=== PATIENT | female | born 1960 | race Caucasian/White ===

== ENCOUNTER → 2018-04-01 10:03 | Outpatient (CLI) | payer BC, SELFPAY ==
[2018-04-01 10:13] LABS: Potassium 4.5 mmol/L (3.5-5.1)
== END ==
PROVIDERS: PCP Internal Medicine; Visit Provider Internal Medicine
DX: E87.5 Hyperkalemia (principal)
CPT/HCPCS: 84132

== ENCOUNTER → 2019-07-31 | Outpatient (CLI) | payer BC, SELFPAY ==
--- NOTE | 2019-07-31 11:16 | COLBX_PTH ---
PATIENT: LUISITO LAMB [facility] U#:[id number] AGE/SX: 59/F ROOM: RE07/31/[address]: Dr. Panchito Rice MD : 1960 BED: DIS: 07/31/2019 SPEC #: [id number] RECD: 07/31/19 15:14 STATUS: ISMAEL REFrancine #: [id number] ARMANDO: 07/31/19 11:[address]: Panchito Rice DEPT: SURGICAL PATHOLOGY RECD BY: Sakina Vasquez ENTERED: 08/03/19 08:40 SP TYPE: COLON BX LATRELL DR: Dr. Nella Canales, [facility] Tissues: Sigmoid colon biopsy Procedures: Surgery Specimen Level IV HEADER OPERATION: Colonoscopy with biopsy PRE-OP DIAGNOSIS: Screening TISSUE SUBMITTED: Distal sigmoid polyp biopsy MICROSCOPIC DIAGNOSIS Distal sigmoid polyp, biopsy: Fragments of hyperplastic polyp. SJ:seamus 08/04/19 MICROSCOPIC DESCRIPTION Slides are reviewed. GROSS DESCRIPTION Received in fixative is one container labeled with the patient's name and designated distal sigmoid biopsy. The specimen consists of two irregular fragments of light mccullough soft tissue that in aggregate measure 0.3 x 0.2 x 0.1 cm. The specimen is totally submitted in one cassette. / AM:seamus 08/03/19 TC:1 CPT: 39637
== END | disposition home or self-care (01) ==
PROVIDERS: PCP Internal Medicine; Referring Provider Internal Medicine Gastroenterology; Visit Provider Internal Medicine Gastroenterology
DX: Z12.11 Encounter for screening for malignant neoplasm of colon (principal)
CPT/HCPCS: 88305

== ENCOUNTER 2021-05-30 15:40 | Outpatient (CLI) | payer BC, SELFPAY ==
--- NOTE | 2021-05-30 16:02 | BI_ITS ---
MAMMOGRAPHY - BILATERAL SCREENING REASON FOR EXAM: Female, 61 years old. Routine annual screening examination. PERTINENT HISTORY: Non-contributory. TECHNIQUE: Digital bilateral breast linh (3D mammographic acquisition) in the CC and MLO projections. 2-D mediolateral oblique (MLO) and craniocaudad (CC) views of both breasts were obtained. CAD: Full Field Digital Mammography with Computer Added Detection was performed. COMPARISON: Comparison is made with prior study dated 02/15/2016 and 10/12/2014. FINDINGS: Breast Composition: There are scattered areas of fibroglandular density. There are no dominant masses or suspicious calcifications. The previously seen nodular density in the upper outer aspect of the left breast has decreased in size. It presently measures 4.6 mm. This was demonstrated to be a cyst on prior ultrasound. No other significant abnormalities are identified. BI/SCRN MAMM (CAD)W/LINH BILAT IMPRESSION: Stable bilateral screening mammogram. Yearly follow-up mammogram recommended. (A) ASSESSMENT CATEGORY: BIRADS Category 2: Benign. A letter regarding these results will be sent to the patient by the facility within 30 days. Approximately 10% of breast cancers are not detected by mammography. A normal mammogram should not delay biopsy of a clinically suspicious abnormality. [id number] Electronically Signed: Kirit Gilbert MD at 8:08 EDT ,
== END 2021-05-30 23:59 | disposition home or self-care (01) ==
LOC: OPBI 16:01
PROVIDERS: PCP Internal Medicine; Visit Provider Internal Medicine
DX: Z12.31 Encounter for screening mammogram for malignant neoplasm of breast (principal)
CPT/HCPCS: 77063; 77067

== ENCOUNTER 2021-06-07 08:51 | Outpatient (CLI) | payer BC, SELFPAY ==
--- NOTE | 2021-06-07 09:01 | BD_ITS ---
STUDY: DUAL ENERGY X-RAY ABSORPTIOMETRY / DXA REASON FOR EXAM: Female, 61 years old. Z780. The patient is postmenopausal. TECHNIQUE: Bone Mineral Density (BMD) measurements of lumbar spine and bilateral hips were obtained. COMPARISON: None. FINDINGS: Lumbar Spine (L1-L4): g/cm2 (0.612) / T-score (-4.4) / Z-score (-2.8) Findings are suggestive of osteoporosis with a high fracture risk. Left Femur Total: g/cm2 (0.614) / T-score (-2.7) / Z-score (-1.6) Left Femoral Neck: g/cm2 (0.474) / T-score (-3.4) / Z-score (-2.0) Right Femur Total: g/cm2 (0.694) / T-score (-2.0) / Z-score (-1.0) Right Femoral Neck: g/cm2 (0.488) / T-score (-3.3) / Z-score (-1.9) BD/Dexa Bone Density Study IMPRESSION: The patient is considered osteoporotic as outlined below according to World Sam Organization (WHO) criteria with a high fracture risk. Reference Information: The T-score is the number of standard deviations above or below the standard which is normal for young adults at their peak bone mineral density. The World Health Organization (WHO) interprets the T-scores as follows: Above -1 Normal bone density Between -1 and -2.5 Osteopenia Equal to / or below -2.5 Osteoporosis As a practical clinical guideline, osteopenia may be graded as follows: Mild -1 through -1.5 Moderate -1.6 through -2.0 Severe -2.1 through -2.4 The Z-score is the number of standard deviations above or below age-matched controls. A Z-score of less than -1.5 would be considered abnormal. References: 1. NIH Osteoporosis and Related Bone Diseases www osteo.org 2. International Society for Clinical Densitometry www iscd.org 3. National Osteoporosis Foundation www [email or web address] Electronically Signed: Kirit Gilbert MD at 13:42 EDT ,
== END 2021-06-07 23:59 | disposition home or self-care (01) ==
LOC: OPBD 08:54
PROVIDERS: PCP Internal Medicine; Visit Provider Internal Medicine
DX: Z78.0 Asymptomatic menopausal state (principal)
CPT/HCPCS: 77080

== ENCOUNTER 2022-10-19 09:00 | Outpatient (RCR) | payer OTHER, SELFPAY ==
--- NOTE | 2022-09-20 10:29 | HP.PTEVAL_ITS ---
Patient's Visit Information Visit Information Visit Information: LUISITO LAMB is a 62 year old F referred to Physical Therapy by DELANEY Harris with a diagnosis of CERVICAL PAIN. Date of Evaluation: 09/20/22 Physical Therapist: Santana Aly, PT, Cert MDT, OCS Visit Plan Frequency: 2x /Week Duration: 4 Weeks Plan: PRECAUTION OSTEOPOROSIS PT INTERVENTIONS CERVICAL ROM , POSTURAL EX'S , MANUAL THERAPY STM/ CERVICAL TRACTION , FLEXAILITY AND US/EXTIM/CP Subjective Subjective: This 62 y/o female presents to physical therapy for cervical pain. Patient started with scapular pain left > right side ~ 1week. Patient currently has left side radiculopathy. No specific etiology of pain or injury. Patient has h/o cervical radiculopathy. Patient had x-rays - showed spur ,provided prednisone and pack . Aggravating factors siting ,rotation and lifting and driving. Alleviating factors rest ,medication. C/O paresthesia/tingling. Patient has MORALES ,denies tinnitus /nausea/dizziness. Patient has no abnormal night pain. Patient condition affects QOL and function. Patient goals to have no pain PRECAUTION: OSTEOPROSIS . Patient has right scoliosis with right convex ,scapular winging SOCAIL: VOACTION: retired Pain Left Scapula: Pain Intensity (Out of 10): 7 Pain Intensity Range: 10 Left Shoulder: Pain Intensity (Out of 10): 9 Pain Intensity Range: 10 Objective Objective: Posture: rounded shoulders head forward ,right scapular winging ,scoliosis right ,right shoulder eleviated NEURO: c/o paresthesia/tingling left arm ,reflexes C5-6-7 2/3 PALPATION: tender UT/levator BUE AROM: WFL MMT: BUE 4/5 Shoulders 4-/5 CERVICAL ROM: flexion min loss ,lateral flexion mod loss ,rotation mod loss ,extension mod loss Special Tests C/S Radiculapathy - Left Upper limb tension test: Negative C/S Radiculapathy - Left Spurlings: Positive C/S Radiculapathy - Right Spurlings: Negative C/S Radiculapathy - Left Cervical distraction: Negative C/S Radiculapathy - Right Cervical distraction: Negative C/S Radiculapathy - Left Relief test: Negative C/S Radiculapathy - Right Relief test: Negative Sharp Rito: Negative Vertebral Artery Test: Negative Alar Ligament Test: Negative Balance/Special Test Scores Oswestry Neck Score: 21 Goals Goal 1:: Patient to be I with HEP for cervical Goal Time Frame: 4-6 Weeks Goal 2:: Patient to improve neck oswestry score by 5 points or > to improve function Goal Time Frame: 4-6 Weeks Goal 3:: Patient to improve cervical ROM for function of recovery to turn neck when driving Goal Time Frame: 4-6 Weeks Goal 4:: Patient to demonstrate 50% improvement with less pain and improved function. Goal Time Frame: 4-6 Weeks Rehabilitation Potential Physical Therapy Diagnosis: This patient has DDD with spurs and asymmetries with scoliosis with possible lateral stenosis with in left arm pain with positioning and motion testing thus will benefit from skilled PT Rehabilitation Potential: Good Anticipated Interventions Patient/Client Instruction: Educate patient on: Condition and Plan of Care For the Purpose of:: To decrease pain, To increase ROM, To improve muscle performance and motor function, To improve ability to perform ADL's, To increase tolerance to activity/condition/position, To improve ability of physical actions for home/community/work/leisure, To improve health of tissue, To decrease soft tissue restriction, To increase flexibility/ROM and To assume or resume ADL's Therapeutic Exercise to Include: Strength training, Postural training, Flexibilty training and Active ROM For the Purpose of:: To decrease pain, To increase ROM, To improve muscle performance and motor function, To improve ability to perform ADL's, To increase tolerance to activity/condition/position, To improve ability of physical actions for home/community/work/leisure, To improve health of tissue, To decrease soft tissue restriction, To increase flexibility/ROM, To reduce risk of recurrence and To improve tolerance to ADL's Manual Therapy Techniques to Include: Soft tissue mobilization Comment: CERVCICAL TRACTION For the Purpose of:: To decrease pain, To increase ROM, To improve nutrient delivery to tissue, To increase oxygenation perfusion, To improve health of tissue, To decrease soft tissue restriction and To increase flexibility/ROM TENS: Yes IF ES: Yes Cryotherapy (ice pack, ice massage): Yes Thermo therapy (hot pack): Yes Ultrasound (thermal/non thermal): Yes For the Purpose of:: To decrease pain, To increase ROM, To improve nutrient delivery to tissue, To increase oxygenation perfusion, To improve health of tis margareth and To decrease soft tissue restriction Text: Thank you for the opportunity to evaluate your patient. For Medicare and Medicare HMO plans, please review the plan of care and approve it. It will need to be FAXED BACK to us at [phone] for Medicare purposes. For Medicare only, by signing this I certify the plan of care. Please let me know if there are questions or concerns regarding this plan of care. Physician Signature: Date:
--- NOTE | 2022-10-19 09:18 | HP.PTDCSUM ---
Discharge Summary D/C summary: It has been my pleasure to treat LUISITO LAMB referred by Deepali Cruz NP-C, with the diagnosis of CERVICAL PAIN for a total of 9 visit(s). Discharge Date: 10/19/22 Please see the following information for a summary of their discharge status. Subjective Subjective: PT has been helping with decreasing pain just paresthesia in fingers Pain Left Scapula: Pain Intensity (Out of 10): 0 Left Shoulder: Pain Intensity (Out of 10): 0 Overall Improvement % Improvement: 90 Objective Objective/Function: pt noted no pain anymore just numbness in her same fingers. It is the same as when she started PT. Goals Goal 1:: Patient to be I with HEP for cervical Goal Progress: Goal Met Goal 2:: Patient to improve neck oswestry score by 5 points or > to improve function Goal Progress: Goal Met Goal 3:: Patient to improve cervical ROM for function of recovery to turn neck when driving Goal Progress: Goal Met Goal 4:: Patient to demonstrate 50% improvement with less pain and improved function. Goal Progress: Goal Met Goal Progress: Goal Met Plan Plan: D/C TO HEP D/C Information d/c sentence: If there are questions or concerns regarding this patient's physical therapy, please feel free to call me at [phone]. Thank you for the referral of this patient. Sincerely, Santana Aly, PT, Cert MDT, OCS Balance/Gait/Functional tests Balance/Special Test Scores Oswestry Neck Score: 0 Improvement % Improvement: 90
== END 2022-10-19 09:38 | disposition home or self-care (01) ==
LOC: PT 09:00
PROVIDERS: PCP Internal Medicine; Referring Provider Nurse Practitioner Family; Visit Provider Nurse Practitioner Family
DX: M54.2 Cervicalgia (principal)
CPT/HCPCS: 97110; 97140; 97162; 97530

== ENCOUNTER → 2023-05-21 | Outpatient (CLI) | payer OTHER, SELFPAY ==
--- NOTE | 2023-05-21 07:37 | CT_ITS ---
STUDY: LOW DOSE CT LUNG CANCER SCREENING REASON FOR EXAM: Female, 63 years old. Former smoker. Patient quit 10 years ago. The patient smoked 1 pack per day for 40 years. RADIATION DOSAGE (If Supplied By Facility): CTDIvol = ( 2.01 ) mGy, DLP = ( 56.65 ) mGycm TECHNIQUE: No contrast was administered. Low dose technique was utilized (average mAS-38 and kVp 120). 1.25 mm axial source images with a slice interval of 1.25-mm were reconstructed in lung windows. 2.5 mm axial source images with a slice interval of 2.5-mm were reconstructed in lung windows. 5.0 mm axial source images with a slice interval of 5.0-mm were reconstructed in soft tissue windows. COMPARISON: None. NODULES: Tiny calcified granulomas in the right upper lobe. There is a 1.3 cm x 1 cm irregular spiculated heterogeneous nodular density in the lateral aspect of the right upper lobe as seen on axial image #77 and coronal image #145. This most likely represents a focal area of scarring although correlation with a PET scan is recommended. Emphysema: Hyperinflation. Emphysematous changes. Scarring in the lung apices with bullous formation. Endobronchial lesion: None Aorta: Atherosclerotic plaque formation of the aortic arch. CORONARY ARTERIES: Coronary artery calcification is not seen. Heart: Unremarkable Pulmonary artery: Unremarkable Mediastinal nodes: Small mediastinal lymph nodes. Other chest and abdominal findings: CT/Low Dose CT Lung Screening IMPRESSION: Lung-RADS category 4A - Screening at 3 months with LDCT or evaluation with PET/CT may be used. IMPORTANT NOTES FOR USE: ACR Lung-RADS Version 1.1 Assessment Categories Release Date: 2018 Category: Coded 0-4 bases on nodule(s) with highest degree of suspicion. Negative screen is defined as categories 1 and 2; a positive screen is defined as categories 3 and 4. Category 3 and 4A nodules that are unchanged on interval CT should be coded as category 2, and individuals returned to screening in 12 months. Category 4X: Category 3 or 4 nodules with additional imaging findings that increase the suspicion of lung cancer, such as spiculation, GGN that doubles in size in 1 year, enlarged lymph notes, etc. Category Modifiers: S (significant finding unrelated to lung cancer) Electronically Signed: Kirit Gilbert MD at 10:59 EDT ,
== END | disposition home or self-care (01) ==
LOC: CT 07:37
PROVIDERS: PCP Internal Medicine; Referring Provider Internal Medicine; Visit Provider Internal Medicine
DX: Z87.891 Personal history of nicotine dependence (principal)
CPT/HCPCS: 71271

== ENCOUNTER → 2023-05-28 | Outpatient (CLI) | payer OTHER, SELFPAY | END | disposition home or self-care (01) | LOC: PSN 09:08 | PROVIDERS: PCP Internal Medicine; Referring Provider Internal Medicine; Visit Provider Internal Medicine | DX: J43.9 Emphysema, unspecified (principal) | CPT/HCPCS: 94060; 94726; 94729 ==

== ENCOUNTER → 2023-06-04 | Outpatient (CLI) | payer OTHER, SELFPAY ==
--- NOTE | 2023-06-04 10:00 | PET_ITS ---
EXAMINATION: FDG PET/CT ? INDICATIONS: 63-year-old female with a history of pulmonary nodularity. ? COMPARISON EXAMINATION: CT of the chest report dated 05/21/2023. ? INDEX LESION SIZE SUV INTERPRETATION Right mid anterior lung field, right upper lobe ? 1.6 max Quantitative criteria for viable neoplasm are not fulfilled, sequential radiologic investigation recommended ? Left lobe thyroid colloid 16.1 mm 49.0 Warrants further investigation with thyroid ultrasound ? TECHNIQUE: Following the intravenous administration of 13.7 mCi of F-18 deoxyglucose via the right wrist, multiplanar image acquisitions of the head, neck, chest, abdomen and pelvis to the level of the midthigh, obtained at one-hour post radiopharmaceutical administration contemporaneously interpreted with the current CT of the chest, abdomen and pelvis dated 06/04/[address] of the chest report dated 05/21/2023 via coregistration reveal: ? SERUM GLUCOSE LEVEL:? 76/ mg/dL? HEIGHT:?? 62 inches WEIGHT:?? 136 pounds ? FINDINGS: ? HEAD/NECK:? Asymmetric increased radiopharmaceutical concentration is defined in the left lobe thyroid colloid generating a calculated standard uptake value of 49.0. The maximal axial diameter of the metabolic, morphologic abnormality is 16.1 mm. ? The visualized portion of the cerebral cortical-subcortical structures demonstrate symmetric and preserved glucose metabolism. ? CHEST:? Facilitated uptake is barely perceptible in the right upper lung field, right upper lobe. The calculated maximum standard uptake value is 1.6. Quantitative criteria for viable neoplasm are not fulfilled. ? CT of the chest demonstrates the following anatomic characteristics: Bilateral axillary soft tissue densities are ametabolic. Atherosclerotic calcification is defined in the thoracic aorta without evidence of dilatation, aneurysm formation. There are no additional parenchymal densities-nodules defined in the right and left hemithorax with quantitatively significant increased FDG uptake. Scattered mediastinal soft tissue densities are ametabolic. ? ABDOMEN/PELVIS:? Normal physiologic distribution of the radiopharmaceutical is identified in the hepatic (3.6) and splenic parenchyma, both renal units, urinary bladder, and visualized intestinal tract. Diffuse intestinal tract is identified in all four quadrants of the abdominal-pelvic mesentery. ? CT of the abdomen and pelvis is remarkable for the following: Left and right inguinal soft tissue densities are ametabolic. The uterus appears retroflexed. Atherosclerotic calcification is defined in the abdominal aorta without evidence of dilatation, aneurysm formation. Pelvic arterial calcification is observed. ? SKELETAL:? There is no evidence of quantitatively significant enhanced glucose metabolism on meticulous inspection of the appendicular and axial skeletal structures. A thoracolumbar scoliosis is demonstrated. ? Degenerative changes defined in the thoracic and lumbar spine demonstrate no evidence of increased glucose metabolism. There are no sclerotic, mixed sclerotic-lytic, or primarily lytic changes defined in the axial skeletal structures with evidence of increased FDG uptake. ? PET/PET/CT Tumor Base -Thigh Init IMPRESSION: 1. The increased radiopharmaceutical concentration defined in the left lobe thyroid colloid may be further investigated with thyroid ultrasound secondary to the quantitative degree of uptake. 2. Facilitated uptake manifest in the right mid anterior lung field, right upper lobe does not fulfill quantitative criteria for malignant transformation. 3. Anatomic stability may be ensured with repeat FDG-PET CT regarding the right hemithorax pulmonary parenchymal abnormality in 3-6 months if clinically indicated. (Alex, Seminars in Thoracic and Cardiovascular Surgery, 14:292, 2002). Electronic Signature Gray Mae D.O. Accurate Quantification of SUVs for this report are calculated using the exclusive [employer]. (U.S. Patent No. [phone] B2 [phone] [place] patent [id number] [id number]). Standardization and correction of the FDG SUV metric via [employer] technology allow for vendor non-specific objective quantitative examination comparison and optimization of the sensitivity and specificity of the FDG PET-CT examination. . [email or web address] Electronically Signed: Gray Mae DO at 22:31 EDT ,
== END | disposition home or self-care (01) ==
PROVIDERS: PCP Internal Medicine; Referring Provider Internal Medicine; Visit Provider Internal Medicine
DX: R91.1 Solitary pulmonary nodule (principal)
CPT/HCPCS: 78815; A9552

== ENCOUNTER → 2023-06-19 | Outpatient (CLI) | payer OTHER, SELFPAY ==
--- NOTE | 2023-06-19 11:07 | US_ITS ---
STUDY: THYROID ULTRASOUND REASON FOR EXAM: Female, 63 years old. abnormal positron emission tomography TECHNIQUE: Ultrasound evaluation of the thyroid was performed with real-time and static dejesus-scale imaging. COMPARISON: PET/CT 06/04/2023 FINDINGS: RIGHT LOBE: The right lobe of the thyroid gland measures 4.1 x 2.2 x 1.4 cm. There is a homogeneous echotexture. There are no demonstrated solid, cystic or complex lesions. LEFT LOBE: The left lobe of the thyroid gland measures 4.2 x 1.8 x 1.4 cm. There is a homogeneous echotexture. Nodule 1:18 x 10 x 13 mm solid isoechoic wider than tall ill-defined margin nodule with no echogenic foci (TR 3) in the mid left lobe corresponding to the nodule with increased uptake seen on PET/CT and follow-up ultrasound is recommended in one year. Small hyperechoic areas posterior to the thyroid gland may represent focal fat. ISTHMUS: The isthmus measures 2 mm thick. . The regional lymph nodes are normal. US/Thyroid IMPRESSION: Ultrasound confirms an 18 mm solid nodule in the left lobe corresponding to nodule seen on PET/CT and follow-up ultrasound is recommended in one year. Electronically Signed: Gray Lnyn MD at 23:47 EDT ,
== END | disposition home or self-care (01) ==
LOC: US 11:07
PROVIDERS: PCP Internal Medicine; Referring Provider Internal Medicine; Visit Provider Internal Medicine
DX: R94.8 Abnormal results of function studies of other organs and systems (principal)
CPT/HCPCS: 76536

== ENCOUNTER → 2023-11-27 | Outpatient (CLI) | payer OTHER, SELFPAY ==
--- NOTE | 2023-11-27 14:52 | BI_ITS ---
MAMMOGRAPHY - BILATERAL SCREENING REASON FOR EXAM: Female, 63 years old. Routine annual screening examination. PERTINENT HISTORY: Non-contributory. History of prior left breast aspiration. TECHNIQUE: Digital bilateral breast linh (3D mammographic acquisition) in the CC and MLO projections. 2-D mediolateral oblique (MLO) and craniocaudad (CC) views of both breasts were obtained. CAD: Full Field Digital Mammography with Computer Added Detection was performed. COMPARISON: Comparison is made with prior study May 30, 2021 and February 15, 2016. FINDINGS: Breast Composition: There are scattered areas of fibroglandular density. There are no dominant masses or suspicious calcifications. No other significant abnormalities are identified. There has been no significant change since the prior study. BI/SCRN MAMM (CAD)W/LINH BILAT IMPRESSION: Stable bilateral screening mammogram. Yearly follow-up mammogram recommended. (A) ASSESSMENT CATEGORY: BIRADS Category 1: Negative. A letter regarding these results will be sent to the patient by the facility within 30 days. Approximately 10% of breast cancers are not detected by mammography. A normal mammogram should not delay biopsy of a clinically suspicious abnormality. [id number] Electronically Signed: Kirit Gilbert MD at 9:35 EDT ,
--- NOTE | 2023-11-27 14:59 | BD_ITS ---
STUDY: DUAL ENERGY X-RAY ABSORPTIOMETRY / DXA REASON FOR EXAM: Female, 63 years old. z780 -- Postmenopausal status TECHNIQUE: Bone Mineral Density (BMD) measurements of lumbar spine and bilateral hips were obtained. COMPARISON: Comparison is made with prior study dated June 07, 2021. FINDINGS: Lumbar Spine (L1-L4): g/cm2 (0.624) / T-score (-4.3) / Z-score (-2.5) Findings are suggestive of osteoporosis with a high fracture risk. Left Femur Total: g/cm2 (0.630) / T-score (-2.6) / Z-score (-1.3) Left Femoral Neck: g/cm2 (0.512) / T-score (-3.0) / Z-score (-1.5) Right Femur Total: g/cm2 (0.631) / T-score (-2.6) / Z-score (-1.3) Right Femoral Neck: g/cm2 (0.506) / T-score (-3.1) / Z-score (-1.6) The T-Scores on the most recent prior examination were: Lumbar Spine (L1-L4): There has been improvement of bone density since the previous examination. Left Femur Total: which represents an improvement of 2.7%. Right Femur Total: which represents a worsening of 9.1%. BD/Dexa Bone Density Study IMPRESSION: The patient is considered osteoporotic as outlined below according to World Sam Organization (WHO) criteria with a high fracture risk. There has been worsening of bone density since the previous examination. Reference Information: The T-score is the number of standard deviations above or below the standard which is normal for young adults at their peak bone mineral density. The World Health Organization (WHO) interprets the T-scores as follows: Above -1 Normal bone density Between -1 and -2.5 Osteopenia Equal to / or below -2.5 Osteoporosis As a practical clinical guideline, osteopenia may be graded as follows: Mild -1 through -1.5 Moderate -1.6 through -2.0 Severe -2.1 through -2.4 The Z-score is the number of standard deviations above or below age-matched controls. A Z-score of less than -1.5 would be considered abnormal. References: 1. NIH Osteoporosis and Related Bone Diseases www osteo.org 2. International Society for Clinical Densitometry www iscd.org 3. National Osteoporosis Foundation www nof.org Electronically Signed: Kirit Gilbert MD at 15:31 EDT ,
== END | disposition home or self-care (01) ==
LOC: OPBD 14:50
PROVIDERS: PCP Internal Medicine; Referring Provider Internal Medicine; Visit Provider Internal Medicine
DX: Z12.31 Encounter for screening mammogram for malignant neoplasm of breast (principal); Z78.0 Asymptomatic menopausal state
CPT/HCPCS: 77063; 77067; 77080

== ENCOUNTER → 2024-05-20 | Outpatient (CLI) | payer BC, SELFPAY ==
--- NOTE | 2024-05-20 13:53 | US_ITS ---
PROCEDURE: THYROID 05/20/2024 REASON FOR EXAM: 64-year-old female, THYROID NODULE follow-up TECHNIQUE: Thyroid ultrasound COMPARISON: Thyroid ultrasound 06/19/2023. FINDINGS: Right thyroid lobe measures 4.2 x 2.2 x 1.5 cm. Left thyroid lobe measures 4.0 x 1.5 x 1.9 cm. Isthmus thickness is0.2 cm. Thyroid Size: Normal Background Echotexture: Homogeneous Thyroid Nodules: One left thyroid nodule: Measures 1.8 x 1.2 x 1.1 cm (previously 1.9 x 1.3 x 1.0 cm), solid, isoechoic, wider than tall, smooth margins without calcifications. TR-3. Other: Small bilateral isoechoic/slightly hyperechoic nodules along the inferolateral thyroid, most compatible with normal parathyroid glands. US/Thyroid IMPRESSION: Stable left TR-3 thyroid nodule. Follow-up in 1 year is recommended by ACR TI- RADS criteria. Reading Location: [id number]
== END | disposition home or self-care (01) ==
LOC: US 13:52
PROVIDERS: PCP Internal Medicine; Referring Provider Internal Medicine; Visit Provider Internal Medicine
DX: E04.1 Nontoxic single thyroid nodule (principal)
CPT/HCPCS: 76536